=== PATIENT | female | born 1990 | race Caucasian/White ===

== ENCOUNTER 2017-03-31 23:49 | Emergency (ER) | payer OTHER ==
[~2017-03-31] VITALS: Ht 154.9 cm; Wt 51.8 kg
[2017-04-01] MEDS ORDERED: ONDANSETRON 4MG OD TAB ONE (00:01)
[2017-04-01 00:04] VITALS: TEMP 37.1; Ht 154.9 cm; Wt 51.8 kg
[2017-04-01] MEDS ORDERED: SODIUM CHLORIDE 0.9% 1000ML 1,000 ML IV STA (00:09)
--- NOTE | 2017-04-01 00:11 | EMERGENCY ROOM VISIT NOTE ---
History Report prepared by Mervat: Ferny Barraza Under the Supervision of: Dr. Julio Cesar Barry M.D. First contact with patient: 23:57 Chief Complaint: OVERDOSE (INTENTIONAL) Stated Complaint: OVERDOSE History of Present Illness The patient is a 27 year old female who presents [facility] the Emergency [facility] for a heroin overdose. The patient states that she only did one bag of heroin, which is the amount that she usually does. She denies trying to hurt herself by intentionally overdosing. The patient claims that she does not remember what happened, and woke up surround by EMS staff. EMS state that there were 4 empty bags of heroin at the scene as well as two open vials of Narcan. The patient does not recall using any Narcan. She claims that she just got out of rehab for heroin addiction and this is her first time using since being discharged. She is actively vomiting on exam. She denies any urinary or pulmonary symptoms. 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 Please see Additional Medical History Sheet. Past Medical & Surgical Medical Problems: (1) Asthma (2) Bronchitis (3) Pneumonia Asthma Bronchitis Family History Cancer Diabetes mellitus Heart disease Hypertension Social History Drug Use: heroin Marital Status: single Housing Status: lives alone Occupation Status: employed Current/Historical Medications Scheduled Hydroxyzine Pamoate (Vistaril), 25-50 MG PO HS Lisdexamfetamine Dimesylate (Vyvanse), 30 MG PO DAILY Melatonin (Melatonin Maximum Strengt), 1 TAB PO HS Allergies Coded Allergies: Acetaminophen (Verified Allergy, Unknown, throat pain, 04/01/17) Physical Exam Vital Signs Date Time Temp Pulse Resp B/P (MAP) Pulse Ox O2 Delivery O2 Flow Rate FiO2 04/01/17 02:56 101/59 04/01/17 02:19 116 18 100 04/01/17 02:04 120 15 100 04/01/17 01:49 123 17 95 04/01/17 01:44 93/53 04/01/17 01:34 124 15 95 04/01/17 01:19 126 12 96 04/01/17 01:04 129 21 94 04/01/17 01:00 95/64 04/01/17 00:49 132 94 04/01/17 00:34 130 15 100 04/01/17 00:30 91/67 04/01/17 00:19 136 18 100 04/01/17 00:04 37.1 129 19 100/72 100 Room Air 04/01/17 00:04 142 17 100 04/01/17 00:00 100/72 03/31/17 23:53 99/72 Physical Exam GENERAL: Patient awake, alert, oriented x 3. Patient follows commands. patient vomited while in my presence. SKIN: No erythema, pallor, cyanosis or rash HEENT: Normal head, pupils equal, reactive to light and accommodation. LUNGS: Clear to auscultation. No wheezes, no rales, no rhonchi. HEART: No murmurs. No gallops. No rubs ABDOMEN: No masses, no rebound, no hepatomegaly or splenomegaly. EXTREMITIES: No signs of trauma. No pedal or pretibial edema. There are track david on both arms NEUROLOGIC: Cranial nerves II-XII within normal limits. No gross motor sensory function deficits. SKIN: No rash Medical Decision & Procedures ER Provider Diagnostic Interpretation: X ray results are stated below per my interpretation: CHEST X-RAY: X-ray of the chest reveals a normal chest. Fair amount of air in the stomach. No pneumothorax, no hemothorax. Laboratory Results 04/01/17 00:25 04/01/17 00:25 Test 04/01/17 00:25 04/01/17 01:47 04/01/17 02:00 Red Blood Count 4.35 M/uL (4.2-5.4) Mean Corpuscular Volume 89.7 fL (80-100) Mean Corpuscular Hemoglobin 30.3 pg (25-34) Mean Corpuscular Hemoglobin Concent 33.8 g/dl (32-36) RDW Standard Deviation 45.8 fL (36.4-46.3) RDW Coefficient of Variation 13.8 % (11.5-14.5) Mean Platelet Volume 8.5 fL (7.4-10.4) Anion Gap 9.0 mmol/L (3-11) Est Creatinine Clear Calc Drug Dose 57.9 ml/min Estimated GFR () 79.7 Estimated GFR (Non- 68.8 BUN/Creatinine Ratio 13.3 (10-20) Calcium Level 9.3 mg/dl (8.5-10.1) Bedside Lactic Acid Venous 1.37 mmol/L (0.90-1.70) Urine Color YELLOW Urine Appearance CLEAR (CLEAR) Urine pH 6.0 (4.5-7.5) Urine Specific [place] 1.023 (1.000-1.030) Urine Protein 1+ (NEG) Urine Glucose (UA) 3+ (NEG) Urine Ketones NEG (NEG) Urine Occult Blood NEG (NEG) Urine Nitrite NEG (NEG) Urine Bilirubin NEG (NEG) Urine Urobilinogen NEG (NEG) Urine Leukocyte Esterase NEG (NEG) Urine WBC (Auto) 1-5 /hpf (0-5) Urine RBC (Auto) 0-4 /hpf (0-4) Urine Hyaline Casts (Auto) 10-30 /lpf (0-5) Urine Epithelial Cells (Auto) 20-30 /lpf (0-5) Urine Bacteria (Auto) NEG (NEG) Urine Pathogenic Casts /lpf (0) Urine Mucus PRESENT (NONE PRSENT) Urine Test NEG (NEG) Urine Opiates Screen POS (NEG) Urine Methadone, Qualitative NEG (NEG) Urine Barbiturates NEG (NEG) Urine Phencyclidine (PCP) Level NEG (NEG) Ur Amphetamine/Methamphetamine POS (NEG) MDMA (Ecstasy) Screen NEG (NEG) Urine Benzodiazepines Screen NEG (NEG) Urine Cocaine Metabolite POS (NEG) Urine Marijuana (THC) NEG (NEG) Laboratory results as stated above per my review. Medications Administered Medications (Trade) Dose Ordered Sig/Harini Route Start Time Stop Time Status Last Admin Dose Admin Ondansetron HCl (Zofran Odt) 4 mg STK-MED ONCE .ROUTE 04/01/17 00:01 04/01/17 00:05 DC 04/01/17 00:03 4 MG Sodium Chloride 1,000 ml @ 500 mls/hr Q2H STAT IV 04/01/17 00:09 04/01/17 02:08 DC 04/01/17 00:38 500 MLS/HR Sodium Chloride 1,000 ml @ 1,000 mls/hr Q1H ONCE IV 04/01/17 01:30 04/01/17 02:29 DC 04/01/17 01:48 1,000 MLS/HR ECG Indication: toxicologic Rate (beats per minute): 135 Rhythm: sinus tachycardia Findings: no acute ischemic change, no ectopy ED Course 2358: Past medical records reviewed. The patient was evaluated in room A2. A complete history and physical examination was performed. 0001: Ordered Zofran 4 mg IV. 0009: Ordered Sodium Chloride 1000 mL @ 500 mL/hr IV. 0114: I checked on the patient at this time. She is still tachycardic. I talked to her about her white blood cell count. She denies any symptoms of infection. 0130: Ordered Sodium Chloride 1000 mL @ 1000 mL/hr IV. 0226: Upon reevaluation, the patient appeared to have improvement of her symptoms. I discussed today's findings with her. She verbalized agreement of the treatment plan. The patient was discharged home. Medical Decision Differential diagnosis include; Heroin overdose, pulmonary edema, infection, metabolic disorders, other drug toxicities. The patient received IV Narcan by an unknown person prior to being brought in by ambulance. Patient was awake alert but nauseous at the time that I evaluated the patient. The patient did vomit a couple of times. Multiple labs , EKG and imaging were obtained. The patient was tachycardic. Urinalysis revealed 3+ glucose but her serum blood sugar was only 104. White count was markedly elevated.. Lactic acid was not elevated. Blood cultures were obtained. The patient has no complaints regarding her pulmonary or urinary systems. She has no rash. I have considered endocarditis but she has no murmur. I believe that her white count was secondary to a stress reaction. The patient was reevaluated multiple times throughout her stay and she was here for approximately 3 hours following administration of Narcan at home. The patient was offered the option of being admitted in the hospital but she does not want to be admitted. I discussed the danger of her continuing to use drugs and suggested that she consider rehab again. Medication Reconcilliation Current Medication List: was personally reviewed by me Blood Pressure Screening Patient's blood pressure: Normal blood pressure Impression Primary Impression: Heroin overdose Additional Impression: Leukocytosis Scribe Attestation The scribe's documentation has been prepared under my direction and personally reviewed by me in its entirety. I confirm that the note above accurately reflects all work, treatment, procedures, and medical decision making performed by me. Departure Information Dispostion Home / Self-Care Referrals [facility] (PCP) Patient Instructions My [facility] [place] Additional Instructions Drink at least 4 quarts of liquid over the next [address] drugs. Follow-up with your family physician within the next 7 days. Problem Qualifiers
[2017-04-01] MEDS ORDERED: LISD30CA4 PO (00:21)
[2017-04-01] MEDS ORDERED: HYDR50CA2 PO (00:22)
[2017-04-01] MEDS ORDERED: MELATAB2 PO (00:23)
[2017-04-01 00:41] LABS: MEAN CELL VOLUME 89.7 fL (80-100); MEAN CORPUSCULAR HEMOGLOBIN 30.3 pg (25-34); MEAN CORPUSCULAR HGB CONC 33.8 g/dl (32-36); MEAN PLATELET VOLUME 8.5 fL (7.4-10.4); PLATELET COUNT 340 K/uL (130-400); RED BLOOD COUNT 4.35 M/uL (4.2-5.4); WHITE BLOOD COUNT 21.51 K/uL (4.8-10.8)
[2017-04-01 01:04] LABS: BUN/CREATININE RATIO 13.3 (10-20); CALCIUM 9.3 mg/dl (8.5-10.1); CREATININE 1.1 mg/dl (0.60-1.20)
[2017-04-01] MEDS ORDERED: SODIUM CHLORIDE 0.9% 1000ML 1,000 ML IV ONE (01:30)
[2017-04-01 02:19] VITALS: PULSE 116; O2SAT 100
[2017-04-01 02:19] LABS: URINE APPEARANCE CLEAR (CLEAR); URINE BILIRUBIN NEG (NEG); URINE COLOR YELLOW; URINE EPITHELIAL CELL AUTO 20-30 /lpf (0-5); URINE NITRITE NEG (NEG); URINE SPECIFIC GRAVITY 1.023 (1.000-1.030); UROBILINOGEN NEG (NEG); ZZUR CULT IF INDIC CLEAN CATCH NO
[2017-04-01 02:25] LABS: MANUAL MICROSCOPIC REQUIRED? NO; REVIEW REQ? YES
[2017-04-01 02:42] LABS: BENZODIAZEPINE, URINE NEG (NEG); COCAINE,URINE POS (NEG); PHENCYCLIDINE, URINE NEG (NEG)
[2017-04-01 02:56] VITALS: BP 101/59
[2017-04-01 03:01] LABS: URINE MUCUS PRESENT (NONE PRSENT)
--- NOTE | 2017-04-01 08:38 | DIAGNOSTIC IMAGING REPORT ---
CHEST ONE VIEW PORTABLE HISTORY: Heroin overdose. COMPARISON: None. FINDINGS: The lungs are clear. Cardiac silhouette is normal in size. No pleural effusions. No pneumothorax. IMPRESSION: No acute process. Electronically signed by: Erasmo Daigle M.D. 04/01/2017 8:36 AM Dictated Date/Time: 04/01/2017 8:36 AM
[2017-04-04 12:19] LABS: COCAINE, URINE 3150 NG/ML (CUTOFF=100); COD UR 492 NG/ML (CUTOFF=50); HYDROCOD UR NEGATIVE NG/ML (CUTOFF=50); HYDROMOR UR NEGATIVE NG/ML (CUTOFF=50); MORPHINE UR >20000 NG/ML (CUTOFF=50); NORHYDROCODONE CONF UR NEGATIVE NG/ML (CUTOFF=50); OXYMORPH UR NEGATIVE NG/ML (CUTOFF=50)
== END 2017-04-01 03:00 | disposition home or self-care (01) ==
LOC: EDBD 23:49 → C.EDA 23:50
DX: T40.1X1A Poisoning by heroin, accidental (unintentional), initial encounter (principal); D72.829 Elevated white blood cell count, unspecified; J45.909 Unspecified asthma, uncomplicated; Z83.3 Family history of diabetes mellitus; Z82.49 Family history of ischemic heart disease and other diseases of the circulatory system; F11.20 Opioid dependence, uncomplicated; X58.XXXA Exposure to other specified factors, initial encounter

== ENCOUNTER 2018-04-11 16:22 | Emergency (ER) | payer OTHER ==
[~2018-04-11] VITALS: Ht 152.4 cm; Wt 46.1 kg
[~2018-04-11 16:22] MED LIST: HYDR50CA2 PO; LISD30CA4 PO; MELATAB2 PO
[2018-04-11 16:26] VITALS: Ht 152.4 cm; Wt 46.1 kg
[2018-04-11] MEDS ORDERED: LORAZEPAM 2 MG/ML 1 ML VIAL IV STA (17:04)
[2018-04-11] MEDS ORDERED: HALOPERIDOL LACTATE 5 MG/ML 1 ML VIAL IV STA (17:04)
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
[2018-04-11] MEDS ORDERED: HALOPERIDOL LACTATE 5 MG/ML 1 ML VIAL IM STA (17:38)
[2018-04-11] MEDS ORDERED: LORAZEPAM 2 MG/ML 1 ML VIAL IM STA (17:38)
[2018-04-11 18:06] LABS: BASO % 0.5 %; BASO ABS # 0.05 K/uL (0-0.2); HEMATOCRIT 39.6 % (37-47); HEMOGLOBIN 13.5 g/dL (12.0-16.0); IG# 0.03 K/uL (0.00-0.02); LYMPH % 34.9 %; LYMPH ABS # 3.39 K/uL (1.2-3.4); MEAN CORPUSCULAR HEMOGLOBIN 30.7 pg (25-34); MEAN CORPUSCULAR HGB CONC 34.1 g/dl (32-36); MEAN PLATELET VOLUME 9.5 fL (7.4-10.4); MONO % 9.2 %; MONO ABS # 0.89 K/uL (0.11-0.59); NEUT % 54.1 %; NEUT ABS # 5.26 K/uL (1.4-6.5); PLATELET COUNT 361 K/uL (130-400); RED CELL DISTRIBUTION WIDTH CV 13.3 % (11.5-14.5); RED CELL DISTRIBUTION WIDTH SD 43.8 fL (36.4-46.3); WHITE BLOOD COUNT 9.72 K/uL (4.8-10.8)
[2018-04-11 18:38] LABS: ALBUMIN 4.7 gm/dl (3.4-5.0); CALCIUM 9.1 mg/dl (8.5-10.1); CREATININE 0.86 mg/dl (0.60-1.20); POTASSIUM 4.2 mmol/L (3.5-5.1); TOTAL PROTEIN 8.1 gm/dl (6.4-8.2)
--- NOTE | 2018-04-11 20:27 | EMERGENCY ROOM VISIT NOTE ---
ED Visit Note First contact with patient: 20:30 At this time I assumed care of the patient from Dr. Ziggy Mott. The patient will be signed out to Dr. Deirdre Kidd at change of shift at 0230.
[2018-04-11 22:52] VITALS: BP 95/58
--- NOTE | 2018-04-12 01:56 | EMERGENCY ROOM VISIT NOTE ---
ED Visit Note First contact with patient: 01:45 Patient signed out to me by Dr. Rios. Patient being evaluated by Harrison, psychiatric egg caser. 0350: 201 signed inpatient except at the [facility]. Patient will be transferred around 7 AM.
[2018-04-12 07:30] VITALS: PULSE 77; O2SAT 99
== END 2018-04-12 07:33 ==
LOC: C.EDB 16:24 → C.EDA 04-12 07:33
DX: F30.9 Manic episode, unspecified (principal); R45.851 Suicidal ideations; J45.909 Unspecified asthma, uncomplicated; Z87.01 Personal history of pneumonia (recurrent); F17.210 Nicotine dependence, cigarettes, uncomplicated; Z80.9 Family history of malignant neoplasm, unspecified; Z83.3 Family history of diabetes mellitus; Z82.49 Family history of ischemic heart disease and other diseases of the circulatory system; Z79.899 Other long term (current) drug therapy; Z88.6 Allergy status to analgesic agent; F11.90 Opioid use, unspecified, uncomplicated

== ENCOUNTER 2018-12-17 17:34 | Inpatient (IN) ==
[2018-12-17 19:07] LABS: Basophils # (auto) 0.03 K/uL (0-0.2); Basophils % (auto) 0.3 %; Eosinophils # (auto) 0.07 K/uL (0-0.5); Eosinophils % (auto) 0.7 %; Hematocrit (blood only) 36.6 % (37-47); Hemoglobin 12.6 g/dL (12.0-16.0); Immature Granulocytes # (auto) 0.02 K/uL (0.00-0.02); Immature Granulocytes % (auto) 0.2 %; Lymphocytes # (auto) 2.79 K/uL (1.2-3.4); Lymphocytes % (auto) 26.1 %; Mean Corpuscular Hgb Conc 34.4 g/dL (32-36); Mean Corpuscular Volume 90.1 fL (80-100); Mean Platelet Volume 9.1 fL (7.4-10.4); Monocytes # (auto) 0.63 K/uL (0.11-0.59); Monocytes % (auto) 5.9 %; Neutrophils # (auto) 7.14 K/uL (1.4-6.5); Neutrophils % (auto) 66.8 %; Platelet Count 363 K/uL (130-400); RDW Coefficient of Variation 13.4 % (11.5-14.5); RDW Standard Deviation 44.2 fL (36.4-46.3); Red Blood Count 4.06 M/uL (4.2-5.4); White Blood Count 10.68 K/uL (4.8-10.8)
[2018-12-17 19:27] LABS: Alanine Aminotransferase 18 U/L (12-78); Albumin Level 4.3 gm/dl (3.4-5.0); Aspartate Aminotransferase 17 U/L (15-37); BUN Creatinine Ratio 18.7 (10-20); Blood Urea Nitrogen 12 mg/dl (7-18); Calcium 9.2 mg/dl (8.5-10.1); Carbon Dioxide 20 mmol/L (21-32); Chloride 108 mmol/L (98-107); Est GFR (African American) 141.5; Est GFR (Non-African American) 122.1; Glucose 73 mg/dl (70-99); Potassium 3.8 mmol/L (3.5-5.1); Sodium 140 mmol/L (136-145)
[2018-12-17 19:31] LABS: Acetaminophen < 2 ug/ml (10-30); Salicylate < 1.7 mg/dl (2.8-20)
[2018-12-17 19:38] LABS: Albumin Globulin Ratio 1.3 (0.9-2); Alkaline Phosphatase 50 U/L (45-117); Bilirubin,Total 0.4 mg/dl (0.2-1); Globulin 3.4 gm/dl (2.5-4.0); Total Protein 7.7 gm/dl (6.4-8.2)
[2018-12-17 20:37] LABS: Appearance Urine Clear (Clear); Bacteria Urine Automated Negative (Negative); Bilirubin Urine Negative (Negative); Blood Urine Trace (Negative); Color Urine Yellow; Epithelial Cell Urine Auto >30 /lpf (0-5); Glucose Urine UA Negative (Negative); Leukocyte Esterase Urine Negative (Negative); Nitrite Urine Negative (Negative); Protein Urine Negative (Negative); RBC Urine Automated 0-4 /hpf (0-4); Specific Gravity Urine 1.031 (1.000-1.030); Urobilinogen Urine Negative (Negative)
[2018-12-17 20:57] LABS: Ketones Urine 4+ (Negative)
[2018-12-17 21:19] LABS: Amphetamines+Metham, Urine Neg (Neg); Barbiturates, Urine Neg (Neg); Benzodiazepine, Urine Neg (Neg); Cocaine, Urine Neg (Neg); MDMA (Ecstacy), Urine Neg (Neg); Methadone, Urine Neg (Neg); Opiate, Urine Neg (Neg); Phencyclidine, Urine Neg (Neg)
[2018-12-17] MEDS ORDERED: LORazepam 1 MG TAB PO STA (22:57)
[2018-12-17] MEDS ORDERED: LORazepam 2 MG/ML VIAL (IM USE) IM STA (23:18)
--- NOTE | 2018-12-18 01:41 | Emergency Department Note ---
Entered by Joyce Marshall acting as a scribe for History of Present Illness General Chief complaint: Mental Health Evaluation Stated complaint: MENTAL EVAL Time Seen by Provider: 12/17/18 18:04 Source: patient and friends History of Present Illness Onset (ago): hour(s) (today) Severity: similar to prior episodes Pain Consistency: + other (episode ) Quality: + other (need for psychiatric evaluation) Associated symptoms: + other (positive decreased sleep; negative thoughts of hurting self; positive thoughts of hurting others occasionally) The patient is a 28 year old female who presents to the Emergency Room who was brought in by her two female companions for an episode of a need for a psychiatric evaluation today. The patient denies thoughts of hurting herself, but states that she occasionally has thoughts of hurting others, but it "depends on who I am". The patient's friends state that the patient was in [place] several months ago and was diagnosed with "bipolar disorder with schizoaffective features". The patient states that she has been taking Seroquel since this time, and her friends state that she has been regular with her medication. Per the patient's friends, the patient was seen by a PA a few weeks ago and was given Klonopin once a day, but then began to take it three times per day before stopping it suddenly. 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 The patient's friends state that the patient has not been sleeping as much as normal, and state that there is no chance she may be . Home Medications Home Medications Medication Instructions Recorded Confirmed Type clonazepam 0.5 mg PO TID PRN 12/17/18 12/17/18 History quetiapine 50 mg PO QPM 12/17/18 12/17/18 History sertraline 100 mg PO DAILY 12/17/18 12/17/18 History Allergies Allergy/AdvReac Type Severity Reaction Status Date / Time acetaminophen Allergy Unknown throat pain Verified 12/17/18 18:17 Past Med/Surg History Medical History Bipolar disorder Social History Preferred Language: Turkish Smoking Status: Former smoker Review of Systems See HPI for pertinent positives & negatives. and A total of 10 systems reviewed and were otherwise negative Physical Exam Vital Signs Vital Signs - 24 hr 12/17/18 17:43 12/17/18 23:15 Temperature 36.7 C Temperature Source Oral Sepsis Recent Fever Within 48 Hours No Sepsis New/Unexplained Change in Mental Status No Sepsis Action Taken by Nursing No Action Required Pulse Rate 134 H Pulse Rate [Right Finger] 71 Respiratory Rate 24 18 Respiratory Effort / Characteristics Non-Labored Spontaneous Non-Labored Spontaneous Respiratory Depth Normal Respiratory Pattern Regular Blood Pressure 122/70 Blood Pressure [Left Arm] 119/70 Blood Pressure Mean 87 Blood Pressure Mean [Left Arm] 86 Blood Pressure Position Sitting Blood Pressure Position [Left Arm] Lying Pulse Oximetry 98 98 Oxygen Delivery Method Room Air Room Air GENERAL: She is oriented to person, place, and time. She appears well-developed and well-nourished. She does not appear distressed. HENT: Exam performed. -Head: Normocephalic and atraumatic. -Right Ear: External ear normal. No mastoid tenderness. -Left Ear: External ear normal. No mastoid tenderness. -Mouth/Throat: The oropharynx is clear and moist. No trismus in the jaw. No dental abscesses or uvula swelling. No oropharyngeal exudate or tonsillar abscesses. EYES: Conjunctivae and EOM are normal. Pupils are equal, round, and reactive to light. Right eye exhibits no discharge. Left eye exhibits no discharge. No scleral icterus. NECK: Normal range of motion. Neck supple. No JVD present. No spinous process tenderness present. No carotid bruit present. No rigidity. No tracheal deviation and normal range of motion present. No Brudzinski's sign and no Kernig's sign noted. CV: Normal rate, regular rhythm, normal heart sounds and intact distal pulses. There is no peripheral edema. Palpable radial pulses bue. PULM/CHEST: Effort normal and breath sounds normal. No respiratory distress. No stridor. She has no wheezes. She has no rales. Chest Wall: She exhibits no tenderness. ABD: The abdomen is soft. Bowel sounds are normal. She has no distension. No mass is present. There is no tenderness. There is no rebound, no guarding, no Lu's sign and no tenderness at McBurney's point. Rovsig negative MUSC/SKEL: Normal range of motion. There is no peripheral edema, tenderness or deformity. LYMPH: No cervical adenopathy. NEURO: She is alert and oriented to person, place, and time. She has normal strength. No cranial nerve deficit or sensory deficit. Coordination and gait normal. GCS eye subscore is 4. GCS verbal subscore is 5. GCS motor subscore is 6. cerbellar tests wnl. SKIN: Skin is warm and dry. She is not diaphoretic. PSYCH: Laughing inappropriately. Evading questions. Asking if I am going to call God about her. Course 184: The patient was evaluated in room A8 and a complete history and physical examination were performed. 0200: Vital signs stable. Patient medically cleared. 302 signed. Awaiting psychiatric bed placement. Case signed out to Dr. Mauricio. Administered Medications Discontinued Medications Lorazepam (Ativan) 1 mg PO NOW STA Stop: 12/17/18 22:58 Last Admin: 12/17/18 23:18 Dose: Not Given Documented by: [id number] Lorazepam (Ativan) 1 mg IM NOW STA Stop: 12/17/18 23:19 Last Admin: 12/17/18 23:35 Dose: 1 mg Documented by: [id number] Medical Decision Making Medical Records Attestation: I reviewed the patient's medical records. Home Medications Current Medication List: was personally reviewed by me Laboratory Data Attestation: I reviewed the patient's lab results. Result diagrams: 12/17/18 18:27 12/17/18 18:27 Lab Results 12/17/18 12/17/18 12/17/18 Range/Units 18:27 18:27 18:27 WBC 10.68 (4.8-10.8) K/uL RBC 4.06 L (4.2-5.4) M/uL Hgb 12.6 (12.0-16.0) g/dL Hct 36.6 L (37-47) % MCV 90.1 (80-100) fL MCH 31.0 (25-34) pg MCHC 34.4 (32-36) g/dL RDW Std Deviation 44.2 (36.4-46.3) fL RDW Coeff of Stephanie 13.4 (11.5-14.5) % Plt Count 363 (130-400) K/uL MPV 9.1 (7.4-10.4) fL Immature Gran % (Auto) 0.2 % Neut % (Auto) 66.8 % Lymph % (Auto) 26.1 % [place] % (Auto) 5.9 % Eos % (Auto) 0.7 % Baso % (Auto) 0.3 % Immature Gran # (Auto) 0.02 (0.00-0.02) K/uL Neut # (Auto) 7.14 H (1.4-6.5) K/uL Lymph # (Auto) 2.79 (1.2-3.4) K/uL [place] # (Auto) 0.63 H (0.11-0.59) K/uL Eos # (Auto) 0.07 (0-0.5) K/uL Baso # (Auto) 0.03 (0-0.2) K/uL Sodium 140 (136-145) mmol/L Potassium 3.8 (3.5-5.1) mmol/L Chloride 108 H (98-107) mmol/L Carbon Dioxide 20 L (21-32) mmol/L Anion Gap 12.0 H (3-11) BUN 12 (7-18) mg/dl Creatinine 0.63 (0.6-1.2) mg/dl Est Cr Clr Drug Dosing Not Reportable Est GFR ( Amer) 141.5 Est GFR (Non-Af Amer) 122.1 BUN/Creatinine Ratio 18.7 (10-20) Glucose 73 (70-99) mg/dl Calcium 9.2 (8.5-10.1) mg/dl Total Bilirubin 0.4 (0.2-1) mg/dl AST 17 (15-37) U/L ALT 18 (12-78) U/L Alkaline Phosphatase 50 (45-117) U/L Total Protein 7.7 (6.4-8.2) gm/dl Albumin 4.3 (3.4-5.0) gm/dl Globulin 3.4 (2.5-4.0) gm/dl Albumin/Globulin Ratio 1.3 (0.9-2) TSH 0.579 (0.300-4.500) uIu/ml Urine Color Urine Appearance (Clear) Urine pH (4.5-7.5) Ur Specific [place] (1.000-1.030) Urine Protein (Negative) Urine Glucose (UA) (Negative) Urine Ketones (Negative) Urine Blood (Negative) Urine Nitrite (Negative) Urine Bilirubin (Negative) Urine Urobilinogen (Negative) Ur Leukocyte Esterase (Negative) Urine WBC (Auto) (0-5) /hpf Urine RBC (Auto) (0-4) /hpf U Hyaline Cast (Auto) (0-5) /lpf U Epithel Cells (Auto) (0-5) /lpf Urine Bacteria (Auto) (Negative) POC Ur Test (NEG) Salicylates < 1.7 L (2.8-20) mg/dl Urine Opiates Screen (Neg) Ur Methadone, Qual (Neg) Acetaminophen < 2 L (10-30) ug/ml Urine Barbiturates (Neg) Ur Phencyclidine (PCP) (Neg) U Amphetamin/Meth Scrn (Neg) MDMA (Ecstasy) Screen (Neg) U Benzodiazepines Scrn (Neg) Ur Cocaine Metabolite (Neg) U Marijuana (THC) Screen (Neg) Ethyl Alcohol mg/dL (0-3) mg/dl 12/17/18 12/17/18 12/17/18 Range/Units 18:27 19:55 19:55 WBC (4.8-10.8) K/uL RBC (4.2-5.4) M/uL Hgb (12.0-16.0) g/dL Hct (37-47) % MCV (80-100) fL MCH (25-34) pg MCHC (32-36) g/dL RDW Std Deviation (36.4-46.3) fL RDW Coeff of Stephanie (11.5-14.5) % Plt Count (130-400) K/uL MPV (7.4-10.4) fL Immature Gran % (Auto) % Neut % (Auto) % Lymph % (Auto) % [place] % (Auto) % Eos % (Auto) % Baso % (Auto) % Immature Gran # (Auto) (0.00-0.02) K/uL Neut # (Auto) (1.4-6.5) K/uL Lymph # (Auto) (1.2-3.4) K/uL [place] # (Auto) (0.11-0.59) K/uL Eos # (Auto) (0-0.5) K/uL Baso # (Auto) (0-0.2) K/uL Sodium (136-145) mmol/L Potassium (3.5-5.1) mmol/L Chloride (98-107) mmol/L Carbon Dioxide (21-32) mmol/L Anion Gap (3-11) BUN (7-18) mg/dl Creatinine (0.6-1.2) mg/dl Est Cr Clr Drug Dosing Est GFR ( Amer) Est GFR (Non-Af Amer) BUN/Creatinine Ratio (10-20) Glucose (70-99) mg/dl Calcium (8.5-10.1) mg/dl Total Bilirubin (0.2-1) mg/dl AST (15-37) U/L ALT (12-78) U/L Alkaline Phosphatase (45-117) U/L Total Protein (6.4-8.2) gm/dl Albumin (3.4-5.0) gm/dl Globulin (2.5-4.0) gm/dl Albumin/Globulin Ratio (0.9-2) TSH (0.300-4.500) uIu/ml Urine Color Yellow Urine Appearance Clear (Clear) Urine pH 6.0 (4.5-7.5) Ur Specific [place] 1.031 H (1.000-1.030) Urine Protein Negative (Negative) Urine Glucose (UA) Negative (Negative) Urine Ketones 4+ H (Negative) Urine Blood Trace H (Negative) Urine Nitrite Negative (Negative) Urine Bilirubin Negative (Negative) Urine Urobilinogen Negative (Negative) Ur Leukocyte Esterase Negative (Negative) Urine WBC (Auto) 1-5 (0-5) /hpf Urine RBC (Auto) 0-4 (0-4) /hpf U Hyaline Cast (Auto) 1-5 (0-5) /lpf U Epithel Cells (Auto) >30 H (0-5) /lpf Urine Bacteria (Auto) Negative (Negative) POC Ur Test (NEG) Salicylates (2.8-20) mg/dl Urine Opiates Screen Neg (Neg) Ur Methadone, Qual Neg (Neg) Acetaminophen (10-30) ug/ml Urine Barbiturates Neg (Neg) Ur Phencyclidine (PCP) Neg (Neg) U Amphetamin/Meth Scrn Neg (Neg) MDMA (Ecstasy) Screen Neg (Neg) U Benzodiazepines Scrn Neg (Neg) Ur Cocaine Metabolite Neg (Neg) U Marijuana (THC) Screen Pos H (Neg) Ethyl Alcohol mg/dL < 3.0 (0-3) mg/dl 12/17/18 Range/Units 20:20 WBC (4.8-10.8) K/uL RBC (4.2-5.4) M/uL Hgb (12.0-16.0) g/dL Hct (37-47) % MCV (80-100) fL MCH (25-34) pg MCHC (32-36) g/dL RDW Std Deviation (36.4-46.3) fL RDW Coeff of Stephanie (11.5-14.5) % Plt Count (130-400) K/uL MPV (7.4-10.4) fL Immature Gran % (Auto) % Neut % (Auto) % Lymph % (Auto) % [place] % (Auto) % Eos % (Auto) % Baso % (Auto) % Immature Gran # (Auto) (0.00-0.02) K/uL Neut # (Auto) (1.4-6.5) K/uL Lymph # (Auto) (1.2-3.4) K/uL [place] # (Auto) (0.11-0.59) K/uL Eos # (Auto) (0-0.5) K/uL Baso # (Auto) (0-0.2) K/uL Sodium (136-145) mmol/L Potassium (3.5-5.1) mmol/L Chloride (98-107) mmol/L Carbon Dioxide (21-32) mmol/L Anion Gap (3-11) BUN (7-18) mg/dl Creatinine (0.6-1.2) mg/dl Est Cr Clr Drug Dosing Est GFR ( Amer) Est GFR (Non-Af Amer) BUN/Creatinine Ratio (10-20) Glucose (70-99) mg/dl Calcium (8.5-10.1) mg/dl Total Bilirubin (0.2-1) mg/dl AST (15-37) U/L ALT (12-78) U/L Alkaline Phosphatase (45-117) U/L Total Protein (6.4-8.2) gm/dl Albumin (3.4-5.0) gm/dl Globulin (2.5-4.0) gm/dl Albumin/Globulin Ratio (0.9-2) TSH (0.300-4.500) uIu/ml Urine Color Urine Appearance (Clear) Urine pH (4.5-7.5) Ur Specific [place] (1.000-1.030) Urine Protein (Negative) Urine Glucose (UA) (Negative) Urine Ketones (Negative) Urine Blood (Negative) Urine Nitrite (Negative) Urine Bilirubin (Negative) Urine Urobilinogen (Negative) Ur Leukocyte Esterase (Negative) Urine WBC (Auto) (0-5) /hpf Urine RBC (Auto) (0-4) /hpf U Hyaline Cast (Auto) (0-5) /lpf U Epithel Cells (Auto) (0-5) /lpf Urine Bacteria (Auto) (Negative) POC Ur Test NEG (NEG) Salicylates (2.8-20) mg/dl Urine Opiates Screen (Neg) Ur Methadone, Qual (Neg) Acetaminophen (10-30) ug/ml Urine Barbiturates (Neg) Ur Phencyclidine (PCP) (Neg) U Amphetamin/Meth Scrn (Neg) MDMA (Ecstasy) Screen (Neg) U Benzodiazepines Scrn (Neg) Ur Cocaine Metabolite (Neg) U Marijuana (THC) Screen (Neg) Ethyl Alcohol mg/dL (0-3) mg/dl [facility] Narrative 0139: Vital signs stable. Patient medically cleared. 302 signed. Impression & Plan Manic episode Discharge Plan Visit Data Chief Complaint: Mental Health Evaluation Stated Complaint: MENTAL EVAL ED Provider: Kit Hartman Discharge Problem: Manic episode Patient Disposition: Still a Patient Forms Stand Alone Forms: My [facility] Prescriptions Prescriptions: No Action clonazepam 0.5 mg tablet 0.5 mg PO TID PRN (Reason: Anxiety) RF: 0 sertraline 100 mg tablet 100 mg PO DAILY RF: 0 quetiapine 50 mg tablet 50 mg PO QPM RF: 0 Referrals Referrals: Beth Daly PA-C [Primary Care Provider] - The scribe's documentation has been prepared under my direction and personally reviewed by me in its entirety. I confirm that the note above accurately reflects all work, treatment, procedures, and medical decision making performed by me.
[2018-12-18] MEDS ORDERED: OLANZapine 5 MG TABLET PO STA (02:20)
[2018-12-18] MEDS ORDERED: BISMUTH SUBSALICYLATE PER ML OMNICELL CHARGE PO PRN (02:33)
[2018-12-18] MEDS ORDERED: MAGNESIUM HYDROXIDE SUSP 30 ML UDC PO PRN (02:33)
[2018-12-18] MEDS ORDERED: ALUMINUM/MAGNESIUM SUSP 30 ML UDC PO PRN (02:33)
[2018-12-18] MEDS ORDERED: SODIUM CHLORIDE 0.65% NA SOLN 45 ML (OCEAN) PRN (02:33)
[2018-12-18] MEDS ORDERED: LORazepam 2 MG/ML VIAL (IM USE) IM STA (04:01)
[2018-12-18] MEDS ORDERED: HALOPERIDOL LACTATE 5 MG/ML 1 ML VIAL IM STA (04:06)
[2018-12-18] MEDS ORDERED: HALOPERIDOL LACTATE 5 MG/ML 1 ML VIAL ONE (04:06)
--- NOTE | 2018-12-18 06:35 | Emergency Department Note ---
ED Visit Note ED Physician Sign Out Note: 28 yr old acutely manic female with history of Bipolar arrives for 302 mental health evaluation. Initially evaluated and medically cleared by Dr Hartman. Signed out to me pending placement. Gradually worsening agitation and non compliance. Refused PO Zyprexa. Given IM Ativan and IM Haldol for agitation a nd psychosis treatment. This worked quite well and patient calming down and less restless. She was admitted to [address] [place] [address] for further management and evaluation. Gorge Mauricio MD
--- NOTE | 2018-12-18 12:49 | History & Physical ---
Date of Service December 18, 2018 Impression / Recommendations Impression 28-year-old female with a reported history of bipolar disorder and heroin abuse who presents with manic and psychotic symptoms in the context of daily cannabis use. She is very difficult historian, refusing to answer questions, and displays very poor insight into her illness and behavior. She is using marijuana daily, which she states is medicinal for dissociative identity disorder, a condition which it is not approved for and may actually worsen. In addition, she admits to abusing clonazepam prescribed by her outpatient PA. She is disinhibited and expansive, which could be due to annie or substance use. We will need to get considerable collateral information as she is unreliable. Laboratory data shows evidence of malnutrition and dehydration, as urine is concentrated with 4+ ketones, and anion gap is elevated. She is hospitalized on an involuntary commitment, in an inpatient treatment is medically necessary at this time due to inability to provide for her own basic needs without the care and assistance of others given the severity of her mood and psychotic symptoms. (1) Psychosis: 12/18 -patient is a poor historian and uncooperative, but her sponsor who brought her to the ER reported that she had not slept in 4-5 days, had decreased appetite, was delusional, hallucinating, and extremely disorganized with nonsensical speech. He has a history of IV heroin use, and more recently has been abusing clonazepam and cannabis. -The differential includes substance-induced psychosis, a primary thought disorder such as schizophrenia or schizoaffective disorder, and psychotic annie. Records indicate a history of schizoaffective disorder and bipolar disorder. We will need to get records from the [facility] where she was hospitalized previously as well as her outpatient PA and therapist for further clarification. -According to her external medication history, she is prescribed clonazepam 0.5 mg 3 times daily as needed, quetiapine 50 mg every afternoon, and sertraline 100 mg daily. These need to be confirmed with Beth GEORGE at [facility]. Hold sertraline given concern for manic symptoms and potential for exacerbation of those, and will discontinue clonazepam as she admits to abusing it and is also smoking cannabis daily. Additionally, she has a significant substance abuse history with heroin overdose requiring Narcan, and recommend avoiding controlled substances given the high risk of abuse/misuse/negative outcomes. -Haldol 5 mg p.o./IM every 4 hours as needed psychosis. -Continue inpatient treatment on a 302 involuntary commitment. Gather information for the need for ongoing treatment. -Coordinate care with DORIS Lawrence (message left by this physician to contact me to discuss the case) and therapist Madie Law. Present on Admission?: Yes (2) Benzodiazepine abuse: 12/18 -discontinue benzodiazepines as above. Patient reports she does not take them regularly, but saves them up to take when she runs out of marijuana, so she is at low risk for withdrawal. Monitor vital signs and withdrawal symptoms, and institute AWSS protocol if necessary. Present on Admission?: Yes (3) Heroin abuse: History of heroin overdose requiring Narcan. Avoid controlled substances given the high risk of abuse/misuse/negative outcomes. Present on Admission?: Yes Risk Factors Assessment Do You Have Access To A Gun?: No Protective Factors Assessment Employed: No (Recently lost her job) Psychiatric History Identifying Data PEACE PITTS is a 28-year-old F who currently lives in [place], has a history of schizoaffective disorder, and was admitted on 12/18/18 02:36 on a 302 involuntary commitment for psychotic annie. Chief Complaint "Not much, my friends kept showing up around, my sponsor was on the stairs, they were fucking upstairs...they said I was talking crazy manic I was trying to understand the nature of God, writing, no one understood what I was trying to communicate". History of Present Illness Information obtained from the patient and the record. She presented to the ER last night with her sponsor, expressing psychotic symptoms, hyper hinduism thoughts, no sleep for 4-5 nights, and noncompliance with prescribed medications (quetiapine and clonazepam). She was tangential, with loose associations, and nonsensical speech, and was unable to provide any information, so her AA sponsor provided much of the history. Reported a history of bipolar disorder and dissociative identity disorder as well as substance abuse, having last used heroin in summer 2016. She had not been eating well, was delusional (would see someone on TV and believes she was them and attempt to take on their persona), and was unable to understand the recommended treatment. When discussing inpatient mental health treatment, she responded with "how do you teach an ape?" She was given Ativan in the ER, but spit it on the floor. She did accept an IM injection of Ativan. She was also given Zyprexa, which she also spit out. Laboratory data is notable for positive THC, elevated anion gap, and UA with elevated specific gravity and 4+ ketones. She went to bed shortly after admission and has been sleeping since. Multiple attempts to arouse her to participate in the admission interview were unsuccessful. She eventually got up and was able to participate in an interview, but was a limited historian. She says she has been diagnosed with "everything, the one I like is DID, it's the best umbrella." She refuses to discuss symptoms, stating, "nope, you can Google it." She says no one can help her, "I'm just along for the ride." "I'd like a better cocktail of drugs." She says she takes "cannabis, Seroquel, sertraline and Klonopin, cannabis is the most important one." She states she takes medicinal marijuana for PTSD and DID, and when she runs out of it, she takes Klonopin, "more than 3 a day," stating she saves it up so that she can take 3 at a time. She denies SI and HI, but makes multiple statements about killing other people. She answers "I don't know" to many questions, including mood, sleep, and appetite. She does not think she is manic or has a mood disorder, "no absolutely not," then says she has "severe depression." She gives either inconsistent reports or evasive, provocative answers to most questions. When attempting to end the interview due to her lack of cooperation, she demands to continue, stating she wants a list of all the possible symptoms that there are so that she can [place] the ones she has. She says she will only participate in the interview if she can "play games." She refuses to say where she is from, but says she "fucking hates it here," and will not say why she moved to [place]. 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 She lived with her sponsor for a time, but said her sponsor asked her to leave because of her drug use. When asked how she supports herself, she says "what I feel like, hustling, I try not to do crime but it is hard." She says "I just want rent money and a place to stay, no one has that." "No one wants to fucking help you, produce you, just want to use you." Past Psychiatric History Previous Psych History: Patient's AA sponsor reported previous diagnoses of bipolar disorder, dissociative identity disorder, and substance abuse. She has been seen in our ER twice in the past, March 2017 for heroin overdose, where she was found with 4 bags of heroin and 2 empty vials of Narcan, but claimed to have only used 1 bag of heroin and did not recall using the Narcan. She had just gotten out of rehab for heroin. Her drug screen was positive for cocaine, amphetamine/methamphetamine, and opiates. She refused inpatient treatment and was discharged home. In March 2016 she presented with suicidal ideation and was accepted at the [facility] for inpatient treatment. She had previously been seen by Dr. Quigley at [facility], and also had psychotropic medications prescribed by her PCP at [facility] in the past. Current Psychiatric Diagnosis: Bipolar disorder type I Outpatient Services: DORIS Lawrence at [facility] for therapy Previous Psych Admissions: [facility] 03/2018 Do You Have Access To A Gun?: No Past Medication Trials: Per records: Sertraline Clonidine clonazepam Haldol and Ativan for acute agitation Allergies Allergy/AdvReac Type Severity Reaction Status Date / Time acetaminophen Allergy Unknown throat pain Verified 12/17/18 18:17 Home Medications Home Medications Medication Instructions Recorded Confirmed Type clonazepam 0.5 mg PO TID PRN 12/17/18 12/17/18 History quetiapine 50 mg PO QPM 12/17/18 12/17/18 History sertraline 100 mg PO DAILY 12/17/18 12/17/18 History Family History Family History of: Doesn't Know Family Mental Health History Comment: Unreliable historian Alcohol History Hx of Alcohol Use Over the Past 12 Months: No (patient refused to answer) Smoking Use Have You Smoked or Used Tobacco Products in the Last 30 Days: Refused to Answer Smoking Status: Former smoker Substance History Hx of Prescription Med Misuse Over the Past 12 Months: Yes (Patient reports she takes more Klonopin that is prescribed when she runs out of marijuana) Hx of Over the Counter Med Misuse Over the Past 12 Months: No (patient refused to answer) Hx of Inhalent Misuse Over the Past 12 Months: No Hx of Organic Substance Use Over the Past 12 Months: Yes (Patient reports she smokes marijuana daily, and UDS is positive) Hx of Illegal Substances/Street Drug Use Over Past 12 Months: Yes (Hx of heroin - last used in summer.) Problems as a Result of Past Substance Use: Life out of Control and Other (Overdose -seen in ER) Personal History Living Arrangements: Apartment Living Arrangements Comments: Patient reports she lives with 2 roommates and her 2 cats. Her lease will be up at the end of December, and she does not know where she will go then. Per records, family lives in [place]. 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 Employment Status: Unemployed Marital Status: Single Beliefs That Will Affect Care: None Current Legal Problems: Yes (Charges for theft ) Patient History Medical History Bipolar disorder Cannabis abuse Heroin abuse Social History Preferred Language: Maori Iron Assorter Required: No Beliefs That Will Affect Care: None Feels Safe at Home: Declines to Answer Smoking Status: Former smoker Review of Systems Review of Systems: Other (Patient uncooperative) Physical Exam Psychiatric: Orientation: alert; + uncooperative Petite white female appearing her stated age. Dressed in paper scrubs, adequate hygiene, limited grooming. Seated in no acute distress, with poor eye contact. Reading a magazine during the assessment. Uncooperative, sarcastic rude responses, frequent swearing. Unreliable historian, giving conflicting reports. Motor Behavior: steady gait and station and no abnormal motor movements Speech: normal rate/rhythm/volume of speech Affect: + irritable affect (Expansive) Patient refuses to answer Thought Process: + tangential thought process, + looseness of associations and + clanging Thought Content: + cognitive distortions Suicidal Thoughts: denies suicidal thoughts Homicidal Thoughts: denies homicidal thoughts Hallucinations: no auditory hallucinations Cognition: language grossly intact; + recent memory not intact and + attention not intact Insight: + severely impaired insight Judgement: + severely impaired judgement Vital Signs (Past 24 Hours): Last Vital Signs Temp 36.7 C 12/17/18 17:43 Pulse 104 H 04/24/19 07:02 Resp 18 12/18/18 07:02 BP 71/35 L 12/18/18 07:02 Pulse Ox 98 12/17/18 23:15 Exam Statement: A physical exam was performed in the ER prior to admission to the unit by Dr. Hartman. I accept that physical as correct/medical clearance for the inpatient physical exam. Results & Data Laboratory Results Laboratory Results - last 24 hr 12/17/18 12/17/18 12/17/18 18:27 18:27 18:27 WBC 10.68 RBC 4.06 L Hgb 12.6 Hct 36.6 L MCV 90.1 MCH 31.0 MCHC 34.4 RDW Std Deviation 44.2 RDW Coeff of Stephanie 13.4 Plt Count 363 MPV 9.1 Immature Gran % (Auto) 0.2 Neut % (Auto) 66.8 Lymph % (Auto) 26.1 [place] % (Auto) 5.9 Eos % (Auto) 0.7 Baso % (Auto) 0.3 Immature Gran # (Auto) 0.02 Neut # (Auto) 7.14 H Lymph # (Auto) 2.79 [place] # (Auto) 0.63 H Eos # (Auto) 0.07 Baso # (Auto) 0.03 Sodium 140 Potassium 3.8 Chloride 108 H Carbon Dioxide 20 L Anion Gap 12.0 H BUN 12 Creatinine 0.63 Est Cr Clr Drug Dosing Not Reportable Est GFR ( Amer) 141.5 Est GFR (Non-Af Amer) 122.1 BUN/Creatinine Ratio 18.7 Glucose 73 Calcium 9.2 Total Bilirubin 0.4 AST 17 ALT 18 Alkaline Phosphatase 50 Total Protein 7.7 Albumin 4.3 Globulin 3.4 Albumin/Globulin Ratio 1.3 TSH 0.579 Urine Color Urine Appearance Urine pH Ur Specific Belen Urine Protein Urine Glucose (UA) Urine Ketones Urine Blood Urine Nitrite Urine Bilirubin Urine Urobilinogen Ur Leukocyte Esterase Urine WBC (Auto) Urine RBC (Auto) U Hyaline Cast (Auto) U Epithel Cells (Auto) Urine Bacteria (Auto) POC Ur Test Salicylates < 1.7 L Urine Opiates Screen Ur Methadone, Qual Acetaminophen < 2 L Urine Barbiturates Ur Phencyclidine (PCP) U Amphetamin/Meth Scrn MDMA (Ecstasy) Screen U Benzodiazepines Scrn Ur Cocaine Metabolite U Marijuana (THC) Screen Ethyl Alcohol mg/dL 12/17/18 12/17/18 12/17/18 18:27 19:55 19:55 WBC RBC Hgb Hct MCV MCH MCHC RDW Std Deviation RDW Coeff of Stephanie Plt Count MPV Immature Gran % (Auto) Neut % (Auto) Lymph % (Auto) [place] % (Auto) Eos % (Auto) Baso % (Auto) Immature Gran # (Auto) Neut # (Auto) Lymph # (Auto) [place] # (Auto) Eos # (Auto) Baso # (Auto) Sodium Potassium Chloride Carbon Dioxide Anion Gap BUN Creatinine Est Cr Clr Drug Dosing Est GFR ( Amer) Est GFR (Non-Af Amer) BUN/Creatinine Ratio Glucose Calcium Total Bilirubin AST ALT Alkaline Phosphatase Total Protein Albumin Globulin Albumin/Globulin Ratio TSH Urine Color Yellow Urine Appearance Clear Urine pH 6.0 Ur Specific Belen 1.031 H Urine Protein Negative Urine Glucose (UA) Negative Urine Ketones 4+ H Urine Blood Trace H Urine Nitrite Negative Urine Bilirubin Negative Urine Urobilinogen Negative Ur Leukocyte Esterase Negative Urine WBC (Auto) 1-5 Urine RBC (Auto) 0-4 U Hyaline Cast (Auto) 1-5 U Epithel Cells (Auto) >30 H Urine Bacteria (Auto) Negative POC Ur Test Salicylates Urine Opiates Screen Neg Ur Methadone, Qual Neg Acetaminophen Urine Barbiturates Neg Ur Phencyclidine (PCP) Neg U Amphetamin/Meth Scrn Neg MDMA (Ecstasy) Screen Neg U Benzodiazepines Scrn Neg Ur Cocaine Metabolite Neg U Marijuana (THC) Screen Pos H Ethyl Alcohol mg/dL < 3.0 12/17/18 20:20 WBC RBC Hgb Hct MCV MCH MCHC RDW Std Deviation RDW Coeff of Stephanie Plt Count MPV Immature Gran % (Auto) Neut % (Auto) Lymph % (Auto) [place] % (Auto) Eos % (Auto) Baso % (Auto) Immature Gran # (Auto) Neut # (Auto) Lymph # (Auto) [place] # (Auto) Eos # (Auto) Baso # (Auto) Sodium Potassium Chloride Carbon Dioxide Anion Gap BUN Creatinine Est Cr Clr Drug Dosing Est GFR ( Amer) Est GFR (Non-Af Amer) BUN/Creatinine Ratio Glucose Calcium Total Bilirubin AST ALT Alkaline Phosphatase Total Protein Albumin Globulin Albumin/Globulin Ratio TSH Urine Color Urine Appearance Urine pH Ur Specific Belen Urine Protein Urine Glucose (UA) Urine Ketones Urine Blood Urine Nitrite Urine Bilirubin Urine Urobilinogen Ur Leukocyte Esterase Urine WBC (Auto) Urine RBC (Auto) U Hyaline Cast (Auto) U Epithel Cells (Auto) Urine Bacteria (Auto) POC Ur Test NEG Salicylates Urine Opiates Screen Ur Methadone, Qual Acetaminophen Urine Barbiturates Ur Phencyclidine (PCP) U Amphetamin/Meth Scrn MDMA (Ecstasy) Screen U Benzodiazepines Scrn Ur Cocaine Metabolite U Marijuana (THC) Screen Ethyl Alcohol mg/dL Current Inpatient Medications Current Inpatient Medications: Current Inpatient Medications Al Hydrox/Mg Hydrox/Simethicone (Maalox) 30 ml PO Q4H PRN PRN Reason: GI Upset Stop: 01/17/19 02:32 Bismuth Subsalicylate (Kaopectate) 15 ml PO PRN PRN PRN Reason: Loose Stool Stop: 01/17/19 02:32 Hydroxyzine HCl (Vistaril) 50 mg PO HSZ PRN PRN Reason: Insomnia Stop: 01/17/19 02:32 Hydroxyzine HCl (Vistaril) 25 mg PO Q4H PRN PRN Reason: Anxiety Stop: 01/17/19 02:32 Magnesium Hydroxide (Milk Of Magnesia) 30 ml PO DAILY PRN PRN Reason: Heartburn Stop: 01/17/19 02:32 Sodium Chloride ([place] Nasal) 1 - 2 sprays NA PRN PRN PRN Reason: Nasal Dryness/Congestion Stop: 01/17/19 02:32 CPT Code CPT Code Initial Hospital Care: 94909
[2018-12-18] MEDS ORDERED: HALOPERIDOL LACTATE 5 MG/ML 1 ML VIAL IM PRN (14:50)
[2018-12-19] MEDS: guaiFENesin 600 MG TABCR PO PRN (07:20)
[2018-12-19] MEDS ORDERED: QUETIAPINE FUMARATE 25 MG TABLET PO PRN (10:12)
--- NOTE | 2018-12-19 10:36 | Psychiatric Progress Note ---
Date of Service December 19, 2018 Impression / Recommendations Impression Despite having slept last night, that patient remains manic and without insight. She is willing for seroquel today, but it is clear that she needs to be in control of things and so will order Seroquel 100 mg q 2 h prn which she agrees to take. Will order ASA for her pain but will avoid decongestants in deference to her annie. Will continue to encourage medications as she is clearly manic and unable to make decisions in a reasonable way. She is here involuntarily and will continue to gather information toward the need for further inpatient treatment. (1) Psychosis: 12/18 -patient is a poor historian and uncooperative, but her sponsor who brought her to the ER reported that she had not slept in 4-5 days, had decreased appetite, was delusional, hallucinating, and extremely disorganized with nonsensical speech. He has a history of IV heroin use, and more recently has been abusing clonazepam and cannabis. -The differential includes substance-induced psychosis, a primary thought disorder such as schizophrenia or schizoaffective disorder, and psychotic annie. Records indicate a history of schizoaffective disorder and bipolar disorder. We will need to get records from the [facility] where she was hospitalized previously as well as her outpatient PA and therapist for further clarification. -According to her external medication history, she is prescribed clonazepam 0.5 mg 3 times daily as needed, quetiapine 50 mg every afternoon, and sertraline 100 mg daily. These need to be confirmed with Beth GEORGE at [facility]. Hold sertraline given concern for manic symptoms and potential for exacerbation of those, and will discontinue clonazepam as she admits to abusing it and is also smoking cannabis daily. Additionally, she has a significant substance abuse history with heroin overdose requiring Narcan, and recommend avoiding controlled substances given the high risk of abuse/misuse/negative outcomes. -Haldol 5 mg p.o./IM every 4 hours as needed psychosis. -Continue inpatient treatment on a 302 involuntary commitment. Gather information for the need for ongoing treatment. -Coordinate care with DORIS Lawrence (message left by this physician to contact me to discuss the case) and therapist Madie Law. 12/19 - Add Seroquel 100 mg Q 2 h prn which the patient says that she is willing to take. - Avoid decongestants due to annie - REality orientation - Assist the patient to avoid overstimulation. (2) Benzodiazepine abuse: 12/18 -discontinue benzodiazepines as above. Patient reports she does not take them regularly, but saves them up to take when she runs out of marijuana, so she is at low risk for withdrawal. Monitor vital signs and withdrawal symptoms, and institute AWSS protocol if necessary. (3) Heroin abuse: History of heroin overdose requiring Narcan. Avoid controlled substances given the high risk of abuse/misuse/negative outcomes. Risk Factors Assessment Do You Have Access To A Gun?: No Protective Factors Assessment Employed: No (Recently lost her job) Interval History Identifying Information 28 yo female admitted involuntarily due to annie including homicidal thoughts, delusion and hallucinations. Chief Complaint "I'm not manic. This is just who I am. ". Review of Systems Sleep Information Total Hours of Sleep: 10.75 Sleep Comments: pt with late admission with poor sleep. pt on q-15 minute checks Meal Information Percent Meal Consumed - Breakfast: 20 Percent Meal Consumed - Lunch: 0 Percent Meal Consumed - Dinner: 0 Nutrition Comment: per meal record Subjective Subjective Patient was seen & assessed and interval progress reviewed with Treatment Team. The patient remains manic and has not taken any meds. She says that she is not manic, but says that her thoughts are 100/10 (10 being the fastest thoughts ever) and energy extremely high. Throughout the interview she is hyperverbal, interrupting and repeating herself. She is writing constantly, making lists of her demands including nasal congestant, brand name mucinex, sertraline, acetaminophen and seroquel. She frequently contradicts herself, saying she needs 50 mg of Seroquel at HS, then later says 50 isn't enough and will need 100 mg. she says that she need sertraline to address her "OCD" demonstrated through her need to put things in order. She insists that she is not manic "I'm just very smart" and has no insight into her behaviors. She frequently derails, talking about my dress or my jewelry, or saying that she's not sure she trusts me. She insists that she needs cannabis and wants to talk to the Pharmacy co carly who makes decisions about allowing this in our hospital. She asks why she is here and I review her admission symptoms to which she says "OK". Physical Exam Psychiatric Orientation: alert; + uncooperative Apperance: + disheveled Eye Contact: good eye contact Motor Behavior: + psychomotor agitation Speech: + pressured speech Affect: + irritable affect Mood: + irritable mood Thought Process: + tangential thought process and + flight of ideas Thought Content: + cognitive distortions Suicidal Thoughts: denies suicidal thoughts Homicidal Thoughts: denies homicidal thoughts Hallucinations: no auditory hallucinations and no visual hallucinations Cognition: language grossly intact; + attention not intact Estimated Intelligence: consistent with education level Insight: + severely impaired insight Judgement: + severely impaired judgement Vital Signs (Past 24 Hours) Last Vital Signs Temp 36.5 C 12/19/18 06:47 Pulse 116 H 12/19/18 06:48 Resp 16 12/19/18 06:47 BP 108/71 12/19/18 06:48 Pulse Ox 98 12/17/18 23:15 Results & Data Current Inpatient Medications Current Inpatient Medications: Current Inpatient Medications Al Hydrox/Mg Hydrox/Simethicone (Maalox) 30 ml PO Q4H PRN PRN Reason: GI Upset Stop: 01/17/19 02:32 Bismuth Subsalicylate (Kaopectate) 15 ml PO PRN PRN PRN Reason: Loose Stool Stop: 01/17/19 02:32 Guaifenesin (Mucinex) 600 mg PO Q12 PRN PRN Reason: Congestion Stop: 01/17/19 20:59 Last Admin: 12/19/18 07:20 Dose: 600 mg Documented by: Haloperidol (Haldol) 5 mg PO Q4H PRN PRN Reason: psychosis Stop: 01/17/19 14:49 Haloperidol Lactate (Haldol) 5 mg IM Q4H PRN PRN Reason: psychosis Stop: 01/17/19 14:49 Hydroxyzine HCl (Vistaril) 50 mg PO HSZ PRN PRN Reason: Insomnia Stop: 01/17/19 02:32 Hydroxyzine HCl (Vistaril) 25 mg PO Q4H PRN PRN Reason: Anxiety Stop: 01/17/19 02:32 Magnesium Hydroxide (Milk Of Magnesia) 30 ml PO DAILY PRN PRN Reason: Heartburn Stop: 01/17/19 02:32 Quetiapine Fumarate (Seroquel) 100 mg PO Q2H PRN PRN Reason: annie/sleep Stop: 01/18/19 10:14 Sodium Chloride ([place] Nasal) 1 - 2 sprays NA PRN PRN PRN Reason: Nasal Dryness/Congestion Stop: 01/17/19 02:32 Post Discharge Appointments Primary Care Physician Name Of Family Doctor: "I can't recall" Therapist Name of Therapist: "I don't know" [employer] Liaison Officer Name of [employer] Liaison Officer: None CPT Code CPT Code 65656
[2018-12-19] MEDS: ASPIRIN/ALUM/MAGNES/CAL CARB 325 MG TAB PO PRN ×2 (11:37→19:51)
[2018-12-19] MEDS: QUETIAPINE FUMARATE 100 MG TABLET PO PRN ×2 (11:39→19:15)
[2018-12-20] MEDS: HALOPERIDOL 5 MG TAB PO PRN ×2 (03:59→10:02)
[2018-12-20] MEDS: QUETIAPINE FUMARATE 100 MG TABLET PO PRN ×2 (04:03→10:02)
[2018-12-20] MEDS: ASPIRIN/ALUM/MAGNES/CAL CARB 325 MG TAB PO PRN ×2 (04:34→10:29)
[2018-12-20] MEDS: guaiFENesin 600 MG TABCR PO PRN (10:29)
--- NOTE | 2018-12-20 14:20 | Discharge Summary ---
Date of Service December 20, 2018 History of Present Illness Information obtained from the patient and the record. She presented to the ER last night with her sponsor, expressing psychotic symptoms, hyper religion thoughts, no sleep for 4-5 nights, and noncompliance with prescribed medications (quetiapine and clonazepam). She was tangential, with loose associations, and nonsensical speech, and was unable to provide any information, so her AA sponsor provided much of the history. Reported a history of bipolar disorder and dissociative identity disorder as well as substance abuse, having last used heroin in summer 2016. She had not been eating well, was delusional (would see someone on TV and believes she was them and attempt to take on their persona), and was unable to understand the recommended treatment. When discussing inpatient mental health treatment, she responded with "how do you teach an ape?" She was given Ativan in the ER, but spit it on the floor. She did accept an IM injection of Ativan. She was also given Zyprexa, which she also spit out. Laboratory data is notable for positive THC, elevated anion gap, and UA with elevated specific gravity and 4+ ketones. She went to bed shortly after admission and has been sleeping since. Multiple attempts to arouse her to participate in the admission interview were unsuccessful. She eventually got up and was able to participate in an interview, but was a limited historian. She says she has been diagnosed with "everything, the one I like is DID, it's the best umbrella." She refuses to discuss symptoms, stating, "nope, you can Google it." She says no one can help her, "I'm just along for the ride." "I'd like a better cocktail of drugs." She says she takes "cannabis, Seroquel, sertraline and Klonopin, cannabis is the most important one." She states she takes medicinal marijuana for PTSD and DID, and when she runs out of it, she takes Klonopin, "more than 3 a day," stating she saves it up so that she can take 3 at a time. She denies SI and HI, but makes multiple statements about killing other people. She answers "I don't know" to many questions, including mood, sleep, and appetite. She does not think she is manic or has a mood disorder, "no absolutely not," then says she has "severe depression." She gives either inconsistent reports or evasive, provocative answers to most questions. When attempting to end the interview due to her lack of cooperation, she demands to continue, stating she wants a list of all the possible symptoms that there are so that she can [place] the ones she has. She says she will only participate in the interview if she can "play games." She refuses to say where she is from, but says she "fucking hates it here," and will not say why she moved to [place]. 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 She lived with her sponsor for a time, but said her sponsor asked her to leave because of her drug use. 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 Frequently interrupts and changes topics rapidly.) Affect: + irritable affect The patient's affect is bright and pleasant as long as she is being told what she wants to hear. She has great difficulty listening to ideas or observations that are not consistent with her own. The patient says that she is in a "very good mood." Thought Process: + flight of ideas The patient is able to tell me that when she first came in the hospital she was having organizing her thoughts and expressing them. She notes that she feels that these problems have not resolved. The patient's thought content is marked by non-delusional grandiosity. For example she states, "I know better about what I need and what my diagnosis is than you fucking doctors" and "I'm helping the other patients here more than half of the staff." Also, she tells me that she will convince the hospital's pharmacy and therapeutic's committee to add medical marijuana to the hospital formulary and notes that she is certain that she will succeed once she "educates them." Suicidal Thoughts: denies suicidal thoughts Homicidal Thoughts: denies homicidal thoughts Hallucinations: no auditory hallucinations The patient's cognitive function is somewhat difficult to assess because the patient tends to give somewhat flippant or broad answers that tend to minimize or revise what has occurred. Estimated Intelligence: + above average estimated intelligence Insight: + poor insight Judgement: + limited judgement Vital Signs (Past 24 Hours) Last Vital Signs Temp 36.3 C L 12/20/18 06:56 Pulse 121 H 12/20/18 07:00 Resp 18 12/20/18 07:00 BP 86/63 L 12/20/18 07:00 Pulse Ox 98 12/17/18 23:15 Principal Diagnosis Bipolar I Disorder, Manic Psychiatric Data During the course of hospitalization the patient was offered various modalities of psychiatric treatment and education. She was often very difficult to redirect, tended to dominate groups by trying to set her own agenda, and, in individual intervention she often would not listen to the provider, or would immediately discount what the provider has said or recommended. She steadfastly refused standard of psychiatric medications and repeatedly insisted that she did not have bipolar disorder, the clinicians do not know what they are talking about, psychiatric diagnosis "is very simple," and she knows her correct diagnosiswhich she believes is dissociative identity disorder. Meanwhile, the patient is consistently showing evidence of annie or hypomania with mildly pressured speech, irritable mood, periodically elated mood, grandiosity, and motoric hyperactivity. She also insists that the only standing medication that she will take is "marijuana and sertraline." She does understand that providers here are reluctant to prescribe sertraline unless she is also taking a mood stabilizer, given her diagnosis of bipolar disorder, but she says that she "does not care" what the providers here think, and she knows "exactly" what she needs, which is marijuana (she claims to have a medical marijuana card) and sertraline. We pointed out to her that she had access to medical marijuana and sertraline, and still ended up ill enough to be hospitalized involuntarily, and the patient said, "that is because I did not have marijuana or sertraline because I could not afford it." At the same time, she pushed for discharge because she wanted to go home and use medical marijuana after realizing that we would not provide either drug. When asked how she could do that if she had run out of both medications, which she contends is the reason for her not sleeping and having to come to the hospital, she says that she has been able to make arrangements that will allow her to secure both medications after discharge. Patient denies any suicidal or homicidal features. She is not cooperating with treatment, is unwilling to remain voluntarily, and describes herself as "feeling much better" because she is now able to sleep and has "gotten a good rest, which is all I really needed."It was determined that the patient does not meet criteria for involuntary psychiatric hospitalization. Certainly, she is continue to show some manic symptoms, but at the same time she is able to care for her own physical needs, is generally behaving in an appropriate manner and her interactions with others at this point, and although she clearly remains does not include systematized delusional beliefs. Instead, she tends to overestimate her importance, her intelligence, her insight, and her influence. We sent a evidence that the patient would meet criteria for dissociative identity disorder, and the patient, herself, tells us that currently she feels her personalities are "centered" and "working together." Given the fact that the patient lacks substantial insight into the need for her to take medications and be actively treated for bipolar disorder, her long-term prognosis is certainly guarded. However, given that she is unwilling to stay voluntarily and given that she does not meet [place] criteria for involuntary civil commitment, the patient will be discharged to home today. Day of Discharge Assessment The patient was appropriately dressed and groomed. She was superficially pleasant, but easily made derogatory statements about other persons, including the interviewer, when there was even a suggestion that someone might not agree with her personal assessments of a situation or condition. The patient's speech remains mildly pressured, but has improved since admission. The patient also demonstrates some flight of ideas, but reports that she is feeling that her thoughts have become significantly more organized now that she has gotten more sleep. She also notes that she continues to ruminate somewhat obsessively about things, and tells me that the reason that she feels sertraline helps is that it seems to stem her tendency to ruminate and obsess. As above, the patient certainly has non-delusional grandiosity. She is referring to herself as "basically brilliant," and claiming to know more about pharmacology than trained clinicians. However, her thoughts are reasonably organized. She has demonstrated that she is able to attend her own physical needs. She has been sleeping fairly well recently, and although she tends to make statements that may be viewed as intended to incite anger or annoyance in others, this behavior does not rise tot he level that it would represent a risk of serious physical harm to self. The patient has essentially no insight, except to recognize that she does have some form of mental illness. She also does recognize that she needs psychiatric medications, but is unable to consider taking anything other than what she, herself, would prescribe for her case. Transition of Care Transition Of Care Record: was reviewed with the patient Advance Directives Advance Directives Information Provided: Yes Advance Directives: No Mental Health Advance Directive: No Advance Directives on File: No Living Will: No Power of Equities Analyst: No Advance Directives Reason:: Declines as Mental Health Visit. Risk Factors Assessment Male: No : Yes Do You Have Access To A Gun?: No Health Problems: No Mental Health Diagnoses: Yes Substance Use Disorders: Yes Previous Attempt: No Family History of Suicide: No Previous Psychiatric Hospitalization: Yes Hopelessness: No Smoker: No Protective Factors Assessment Employed: No (Recently lost her job) Discharge Data Lab Results 12/17/18 12/17/18 12/17/18 18:27 18:27 18:27 WBC 10.68 RBC 4.06 L Hgb 12.6 Hct 36.6 L MCV 90.1 MCH 31.0 MCHC 34.4 RDW Std Deviation 44.2 RDW Coeff of Stephanie 13.4 Plt Count 363 MPV 9.1 Immature Gran % (Auto) 0.2 Neut % (Auto) 66.8 Lymph % (Auto) 26.1 [place] % (Auto) 5.9 Eos % (Auto) 0.7 Baso % (Auto) 0.3 Immature Gran # (Auto) 0.02 Neut # (Auto) 7.14 H Lymph # (Auto) 2.79 [place] # (Auto) 0.63 H Eos # (Auto) 0.07 Baso # (Auto) 0.03 Sodium 140 Potassium 3.8 Chloride 108 H Carbon Dioxide 20 L Anion Gap 12.0 H BUN 12 Creatinine 0.63 Est Cr Clr Drug Dosing Not Reportable Est GFR ( Amer) 141.5 Est GFR (Non-Af Amer) 122.1 BUN/Creatinine Ratio 18.7 Glucose 73 Calcium 9.2 Total Bilirubin 0.4 AST 17 ALT 18 Alkaline Phosphatase 50 Total Protein 7.7 Albumin 4.3 Globulin 3.4 Albumin/Globulin Ratio 1.3 TSH 0.579 Urine Color Urine Appearance Urine pH Ur Specific Jennings Urine Protein Urine Glucose (UA) Urine Ketones Urine Blood Urine Nitrite Urine Bilirubin Urine Urobilinogen Ur Leukocyte Esterase Urine WBC (Auto) Urine RBC (Auto) U Hyaline Cast (Auto) U Epithel Cells (Auto) Urine Bacteria (Auto) POC Ur Test Salicylates < 1.7 L Urine Opiates Screen Ur Methadone, Qual Acetaminophen < 2 L Urine Barbiturates Ur Phencyclidine (PCP) U Amphetamin/Meth Scrn MDMA (Ecstasy) Screen U Benzodiazepines Scrn Ur Cocaine Metabolite U Marijuana (THC) Screen Ethyl Alcohol mg/dL 12/17/18 12/17/18 12/17/18 18:27 19:55 19:55 WBC RBC Hgb Hct MCV MCH MCHC RDW Std Deviation RDW Coeff of Stephanie Plt Count MPV Immature Gran % (Auto) Neut % (Auto) Lymph % (Auto) [place] % (Auto) Eos % (Auto) Baso % (Auto) Immature Gran # (Auto) Neut # (Auto) Lymph # (Auto) [place] # (Auto) Eos # (Auto) Baso # (Auto) Sodium Potassium Chloride Carbon Dioxide Anion Gap BUN Creatinine Est Cr Clr Drug Dosing Est GFR ( Amer) Est GFR (Non-Af Amer) BUN/Creatinine Ratio Glucose Calcium Total Bilirubin AST ALT Alkaline Phosphatase Total Protein Albumin Globulin Albumin/Globulin Ratio TSH Urine Color Yellow Urine Appearance Clear Urine pH 6.0 Ur Specific Jennings 1.031 H Urine Protein Negative Urine Glucose (UA) Negative Urine Ketones 4+ H Urine Blood Trace H Urine Nitrite Negative Urine Bilirubin Negative Urine Urobilinogen Negative Ur Leukocyte Esterase Negative Urine WBC (Auto) 1-5 Urine RBC (Auto) 0-4 U Hyaline Cast (Auto) 1-5 U Epithel Cells (Auto) >30 H Urine Bacteria (Auto) Negative POC Ur Test Salicylates Urine Opiates Screen Neg Ur Methadone, Qual Neg Acetaminophen Urine Barbiturates Neg Ur Phencyclidine (PCP) Neg U Amphetamin/Meth Scrn Neg MDMA (Ecstasy) Screen Neg U Benzodiazepines Scrn Neg Ur Cocaine Metabolite Neg U Marijuana (THC) Screen Pos H Ethyl Alcohol mg/dL < 3.0 12/17/18 20:20 WBC RBC Hgb Hct MCV MCH MCHC RDW Std Deviation RDW Coeff of Stephanie Plt Count MPV Immature Gran % (Auto) Neut % (Auto) Lymph % (Auto) [place] % (Auto) Eos % (Auto) Baso % (Auto) Immature Gran # (Auto) Neut # (Auto) Lymph # (Auto) [place] # (Auto) Eos # (Auto) Baso # (Auto) Sodium Potassium Chloride Carbon Dioxide Anion Gap BUN Creatinine Est Cr Clr Drug Dosing Est GFR ( Amer) Est GFR (Non-Af Amer) BUN/Creatinine Ratio Glucose Calcium Total Bilirubin AST ALT Alkaline Phosphatase Total Protein Albumin Globulin Albumin/Globulin Ratio TSH Urine Color Urine Appearance Urine pH Ur Specific Jennings Urine Protein Urine Glucose (UA) Urine Ketones Urine Blood Urine Nitrite Urine Bilirubin Urine Urobilinogen Ur Leukocyte Esterase Urine WBC (Auto) Urine RBC (Auto) U Hyaline Cast (Auto) U Epithel Cells (Auto) Urine Bacteria (Auto) POC Ur Test NEG Salicylates Urine Opiates Screen Ur Methadone, Qual Acetaminophen Urine Barbiturates Ur Phencyclidine (PCP) U Amphetamin/Meth Scrn MDMA (Ecstasy) Screen U Benzodiazepines Scrn Ur Cocaine Metabolite U Marijuana (THC) Screen Ethyl Alcohol mg/dL Hospital Course (1) Psychosis: 12/18 -patient is a poor historian and uncooperative, but her sponsor who brought her to the ER reported that she had not slept in 4-5 days, had decreased appetite, was delusional, hallucinating, and extremely disorganized with nonsensical speech. He has a history of IV heroin use, and more recently has been abusing clonazepam and cannabis. -The differential includes substance-induced psychosis, a primary thought disorder such as schizophrenia or schizoaffective disorder, and psychotic annie. Records indicate a history of schizoaffective disorder and bipolar disorder. We will need to get records from the [facility] where she was hospitalized previously as well as her outpatient PA and therapist for further clarification. -According to her external medication history, she is prescribed clonazepam 0.5 mg 3 times daily as needed, quetiapine 50 mg every afternoon, and sertraline 100 mg daily. These need to be confirmed with Beth GEORGE at [facility]. Hold sertraline given concern for manic symptoms and potential for exacerbation of those, and will discontinue clonazepam as she admits to abusing it and is also smoking cannabis daily. Additionally, she has a significant substance abuse history with heroin overdose requiring Narcan, and recommend avoiding controlled substances given the high risk of abuse/misuse/negative outcomes. -Haldol 5 mg p.o./IM every 4 hours as needed psychosis. -Continue inpatient treatment on a 302 involuntary commitment. Gather information for the need for ongoing treatment. -Coordinate care with DORIS Lawrence (message left by this physician to contact me to discuss the case) and therapist Madie Law. 12/19 - Add Seroquel 100 mg Q 2 h prn which the patient says that she is willing to take. - Avoid decongestants due to annie - REality orientation 12/20 -The patient continues to flatly refused to take any mood stabilizing medications and says that she will only agreed to take sertraline (Zoloft) and medical marijuana. She is unable to listen to explanations for why providers would be reluctant to prescribe sertraline without also having a mood stabilizer on board. -The patient's thoughts have become more organized and she is now sleeping adequately. -Patient reports that she is not experiencing any suicidal or homicidal thoughts. She exhibits nondelusional grandiosity delusions of any kind are identified and the patient's thought content at this point. -She is unable to consider that perhaps the reason that she is improving is that she is not taking sertraline, nor is she using medical marijuana. -We agree that the patient does not meet criteria for a 303 commitment. She does not pose a risk to herself or other people at this point. She is refusing to stay voluntarily. She is refusing to cooperate essentially with treatment. - Assist the patient to avoid overstimulation. (2) Benzodiazepine abuse: 12/18 -discontinue benzodiazepines as above. Patient reports she does not take them regularly, but saves them up to take when she runs out of marijuana, so she is at low risk for withdrawal. Monitor vital signs and withdrawal symptoms, and institute AWSS protocol if necessary. 12/20 -The patient reports that she has secured money that she will be able to use to purchase medical marijuana, and does not anticipate using a benzodiazepine. There is no evidence of any physical withdrawal (3) Heroin abuse: History of heroin overdose requiring Narcan. Avoid controlled substances given the high risk of abuse/misuse/negative outcomes. Post Discharge Appointments Primary Care Physician Name Of Family Doctor: "I can't recall" Psychiatrist Name of Psychiatrist: Mayo Daly Psychiatrist's Date of Appointment with Psychiatrist: 12/30/18 Time of Appointment with Psychiatrist: 9:30 Psychiatric Appointment Comment: [id number] [place] [address] Therapist Name of Therapist: Nae Ross LCSW Therapist's Therapy Appointment Comment: [address] [place] [address] Shuttle Inspector Name of Shuttle Inspector: [facility] [place] Phone Number for Shuttle Inspector: [phone] Contact Information Discharge Discharge Address: [address] [place] [address] Discharge Plan Discharge Items Patient Disposition: Home - Self-Care Reason For Visit: BIPOLAR DISORDER Discharge Diagnosis: Bipolar I Disorder, Manic Discharge Goals: Improve disease control, Improve function and Learn about illness Specific Goals: Consider trying recommended medications before rejecting them. Activity: Resume your previous activity Non-emergency contact: Psychiatrist and Therapist Call non-emergency contact if: your symptoms worsen Follow-up/Referrals: Beth Daly PA-C [Primary Care Provider] - Diet: Regular Addtl Provider Instructions: Note that for you decreased sleep, decreased desire for sleep, or decreased ability to sleep can mean an exacerbation of your illness. Similarly, note that "jumbled" thoughts or difficulty expressing yourself can also be a sign of worsening symptoms. Prescriptions: New haloperidol 5 mg Tablet 5 mg PO TID PRN (Reason: Jumbled Thinking) Qty: 15 RF: 1 Discontinued clonazepam 0.5 mg tablet 0.5 mg PO TID PRN (Reason: Anxiety) RF: 0 sertraline 100 mg tablet 100 mg PO DAILY RF: 0 quetiapine 50 mg tablet 50 mg PO QPM RF: 0 Stand-Alone Forms: [facility]charge Orders: Discharge Order (Routine); Ordered 12/20/18 Ordered By: Francisco Rajput Admission Data Admit Date/Time: 12/18/18 02:36 Attending Provider: Emilie Barney Admit Provider: Chandler Rosas Primary Care Provider: Beth Daly Service: Psychiatry Other Interventions: PSY Interdisciplinary Discharge Planning Last Done: 12/20/18 14:21 Pending Studies at Discharge: Yes (THC Tox)
== END 2018-12-20 15:50 | disposition home or self-care (01) | DRG 885 ==
LOC: ED 17:34 → 3S 12-18 02:36